=== PATIENT | female | born 1975 | race Caucasian/White ===

== ENCOUNTER → 2018-03-06 | Emergency (ER) | payer MEDICAID ==
[~2018-03-06] VITALS: Ht 167.6 cm; Wt 65.6 kg
[~2018-03-06] MED LIST: CEPH250T PO; TRAM50TA2 PO; ketorolac trometh inj. 60 MG/2 ML VIAL IM ONE
[2018-03-06 18:24] VITALS: BP 125/57
[2018-03-06 19:22] LABS: BASOPHILS % (AUTO) 0.2 % (0-1); EOSINOPHILS # (AUTO) 0.1 X10'3 (0-0.9); EOSINOPHILS % (AUTO) 1.8 % (0-6); HEMATOCRIT 33.8 % (35.0-45.0); HEMOGLOBIN 11.6 g/dl (12.0-16.0); LYMPHOCYTES # (AUTO) 2.2 X10'3 (1.1-4.8); LYMPHOCYTES % (AUTO) 27.1 % (21-51); MEAN CORPUSCULAR HEMOGLOBIN 32.5 PG (27.0-31.0); MEAN CORPUSCULAR HGB CONC 34.4 % (33.0-36.5); MEAN CORPUSCULAR VOLUME 94.4 FL (78-98); MEAN PLATELET VOLUME 8.3 FL (7.4-10.4); MONOCYTES # (AUTO) 0.4 X10'3 (0-0.9); MONOCYTES % (AUTO) 5.6 % (2-12); NEUTROPHILS # (AUTO) 5.2 X10'3 (1.8-7.7); NEUTROPHILS % (AUTO) 65.3 % (42-75); PLATELET COUNT 369 X10'3 (140-440); RED BLOOD COUNT 3.58 X10'6 (4.20-5.60)
[2018-03-06 19:32] LABS: ALBUMIN 3.5 G/DL (3.4-5.0); ANION GAP 8 (8-16); BLOOD UREA NITROGEN 12 MG/DL (7-18); BUN/CREATININE RATIO 18.5 (6.6-38.0); CALCIUM 8.8 MG/DL (8.5-10.1); CHLORIDE 102 MMOL/L (99-107); CREATININE 0.65 MG/DL (0.40-0.90); GLUCOSE 81 MG/DL (70-104); POTASSIUM 3.5 MMOL/L (3.5-5.1); SODIUM 139 MMOL/L (135-145); TOTAL CARBON DIOXIDE 28.6 MMOL/L (24-32); eGFR > 90 ML/MIN
== END | disposition home or self-care (01) ==
LOC: ER 18:20
DX: M25.572 Pain in left ankle and joints of left foot (principal); L03.116 Cellulitis of left lower limb; Z56.0 Unemployment, unspecified; Z90.49 Acquired absence of other specified parts of digestive tract; Z88.5 Allergy status to narcotic agent
CPT/HCPCS: 36415; 73610; 80048; 84550; 85025; 96372; 99285; J1885

== ENCOUNTER 2018-03-18 00:34 | Emergency (ER) | payer MEDICAID ==
[~2018-03-18] VITALS: Ht 167.6 cm; Wt 67.7 kg
[2018-03-18 00:42] VITALS: BP 119/71
[2018-03-18] MEDS ORDERED: SULF1TAB49 PO (00:45)
[2018-03-18] MEDS ORDERED: sulfamethoxazole/trimethoprim DS (800/160mg) tablet PO ONE (00:45)
== END 2018-03-18 00:59 | disposition home or self-care (01) ==
LOC: ER 00:34
DX: L03.116 Cellulitis of left lower limb (principal); F17.210 Nicotine dependence, cigarettes, uncomplicated; Z90.49 Acquired absence of other specified parts of digestive tract; Z90.710 Acquired absence of both cervix and uterus; Z88.5 Allergy status to narcotic agent; Z79.2 Long term (current) use of antibiotics; Z56.0 Unemployment, unspecified
CPT/HCPCS: 99283

== ENCOUNTER 2019-05-04 11:15 | Emergency (ER) | payer MEDICAID ==
[~2019-05-04] VITALS: Ht 167.6 cm; Wt 82.1 kg
[2019-05-04 11:21] VITALS: BP 116/51
[2019-05-04] MEDS ORDERED: CYCL-1 PO (13:36)
== END 2019-05-04 13:58 | disposition home or self-care (01) ==
LOC: ER 11:15
DX: S39.012A Strain of muscle, fascia and tendon of lower back, initial encounter (principal); F17.200 Nicotine dependence, unspecified, uncomplicated; F12.10 Cannabis abuse, uncomplicated; G89.21 Chronic pain due to trauma; Z88.5 Allergy status to narcotic agent; Z79.899 Other long term (current) drug therapy; Z90.49 Acquired absence of other specified parts of digestive tract; W31.89XA Contact with other specified machinery, initial encounter; Y93.89 Activity, other specified; Y92.89 Other specified places as the place of occurrence of the external cause; Y99.0 Civilian activity done for income or pay
CPT/HCPCS: 99283

== ENCOUNTER 2019-05-06 22:52 | Emergency (ER) | payer MEDICAID ==
[~2019-05-06] VITALS: Ht 167.6 cm; Wt 77.3 kg
[~2019-05-06 22:52] MED LIST changes: -CEPH250T PO; +CYCL-1 PO; -TRAM50TA2 PO; -ketorolac trometh inj. 60 MG/2 ML VIAL IM ONE
[2019-05-06] MEDS ORDERED: orphenadrine citrate 60mg/2ml inj. IM ONE (23:20)
[2019-05-06] MEDS ORDERED: HYDROcodone/acetaminophen 10/325mg tab PO ONE (23:20)
[2019-05-06] MEDS: morphine 4 MG/ML inj SYRINge IV PRN (23:31)
[2019-05-06 23:45] LABS: MEAN CORPUSCULAR HEMOGLOBIN 24.3 PG (27.0-31.0); RED CELL DISTRIBUTION WIDTH 17.5 % (11.5-14.5)
[2019-05-06 23:47] LABS: BASOPHILS # (AUTO) 0.1 X10'3 (0-0.2); BASOPHILS % (AUTO) 0.9 % (0-1); EOSINOPHILS # (AUTO) 0.1 X10'3 (0-0.9); EOSINOPHILS % (AUTO) 1.5 % (0-6); HEMATOCRIT 26.8 % (35.0-45.0); HEMOGLOBIN 8.6 g/dl (12.0-16.0); LYMPHOCYTES # (AUTO) 1.7 X10'3 (1.1-4.8); LYMPHOCYTES % (AUTO) 19.3 % (21-51); MEAN CORPUSCULAR HGB CONC 32.2 g/dL (33.0-36.5); MEAN CORPUSCULAR VOLUME 75.3 FL (78-98); MEAN PLATELET VOLUME 7.7 FL (7.4-10.4); MONOCYTES # (AUTO) 0.6 X10'3 (0-0.9); MONOCYTES % (AUTO) 7.1 % (2-12); NEUTROPHILS # (AUTO) 6.4 X10'3 (1.8-7.7); NEUTROPHILS % (AUTO) 71.2 % (42-75); PLATELET COUNT 622 X10'3 (140-440); RED BLOOD COUNT 3.56 X10'6 (4.20-5.60)
[2019-05-06 23:50] LABS: ALANINE AMINOTRANSFERASE 136 U/L (12-78); ALBUMIN 3.6 G/DL (3.4-5.0); ALBUMIN/GLOBULIN RATIO 0.8 (1.1-1.5); ALKALINE PHOSPHATASE 194 IU/L (46-116); ANION GAP 4 (8-16); ASPARTATE AMINO TRANSFERASE 105 U/L (10-37); BILIRUBIN,TOTAL 0.3 MG/DL (0.1-1.0); BLOOD UREA NITROGEN 13 MG/DL (7-18); BUN/CREATININE RATIO 13.7 (6.6-38.0); CALCIUM 8.7 MG/DL (8.5-10.1); CHLORIDE 100 MMOL/L (99-107); CREATININE 0.95 MG/DL (0.40-0.90); GLUCOSE 99 MG/DL (70-104); POTASSIUM 3.7 MMOL/L (3.5-5.1); SODIUM 135 MMOL/L (135-145); TOTAL CARBON DIOXIDE 30.6 MMOL/L (24-32); TOTAL PROTEIN 8.1 G/DL (6.4-8.2); eGFR 64 ML/MIN
--- NOTE | 2019-05-07 00:36 | NUR ---
pt with stable vs, reports when given the pain meds earlier her pain went down to a 3 out of 10, but now increased to 8 out of 10 to the right back and right leg.
[2019-05-07] MEDS: morphine 4 MG/ML inj SYRINge IV PRN (00:44)
[2019-05-07 00:47] LABS: ANISOCYTOSIS 1+; HYPOCHROMASIA 1+; MICROCYTOSIS 1+; PLATELET ESTIMATE INCREASED
[2019-05-07] MEDS ORDERED: HYDR-4353 PO (00:51)
[2019-05-07] MEDS ORDERED: IBUP-1986 PO (00:51)
[2019-05-07] MEDS ORDERED: ORPH100T2 PO (00:51)
[2019-05-07 01:12] VITALS: BP 99/66
== END 2019-05-07 01:14 | disposition home or self-care (01) ==
LOC: ER 22:53
DX: M54.5 Low back pain (principal); F17.200 Nicotine dependence, unspecified, uncomplicated; Z88.6 Allergy status to analgesic agent; Z79.899 Other long term (current) drug therapy; Z90.49 Acquired absence of other specified parts of digestive tract; X50.0XXA Overexertion from strenuous movement or load, initial encounter; Y93.89 Activity, other specified; Y92.89 Other specified places as the place of occurrence of the external cause; Y99.8 Other external cause status
CPT/HCPCS: 36415; 80053; 85025; 96372; 96374; 96376; 99283; J2270; J2360

== ENCOUNTER 2019-06-15 11:45 | Emergency (ER) | payer MEDICAID ==
[~2019-06-15] VITALS: Ht 167.6 cm; Wt 80.0 kg
[~2019-06-15 11:45] MED LIST changes: +IBUP-1986 PO; +ORPH100T2 PO
[2019-06-15 12:07] VITALS: BP 97/70
[2019-06-15] MEDS ORDERED: NAPR-1154 PO (12:15)
[2019-06-15] MEDS ORDERED: COLC0.6T69 PO (12:15)
[2019-06-15] MEDS ORDERED: HYDR-4353 PO (12:15)
[2019-06-15] MEDS ORDERED: colchicine 0.6mg tablet PO ONE (12:20)
== END 2019-06-15 12:46 | disposition home or self-care (01) ==
LOC: ER 11:46
DX: M10.9 Gout, unspecified (principal); F12.90 Cannabis use, unspecified, uncomplicated; Z90.49 Acquired absence of other specified parts of digestive tract; Z98.890 Other specified postprocedural states; Z87.440 Personal history of urinary (tract) infections; Z88.5 Allergy status to narcotic agent
CPT/HCPCS: 99283

== ENCOUNTER 2019-09-11 16:25 | Emergency (ER) | payer MEDICAID ==
[~2019-09-11 16:25] MED LIST changes: +COLC0.6T69 PO; +NAPR-1154 PO
[2019-09-11 17:19] LABS: CLARITY,URINE CLEAR (Clear); COLOR,URINE YELLOW (Yellow); GLUCOSE, URINE NEGATIVE (Neg); KETONES,URINE NEGATIVE (Neg); LEUKOCYTE ESTERASE ,URINE SMALL (Neg); NITRITES, URINE POSITIVE (Neg); OCCULT BLOOD,URINE MODERATE (Neg); PH,URINE 5.5 (4.8-8.0); PROTEIN,URINE NEGATIVE (Neg); UROBILINOGEN,URINE 0.2 E.U/dL (0.2-1.0)
[2019-09-11 17:24] LABS: UA COLLECTION TYPE CLN CATCH MIDSTREAM
[2019-09-11 17:26] LABS: BACTERIA,URINE 4+ /HPF (Neg); MUCUS STRANDS FEW /LPF (Neg); SQUAMOUS EPITHELIAL CELL,UR MODERATE /LPF (FEW); WBC,URINE 30-50 /HPF (0-4)
[2019-09-11 17:45] LABS: EOSINOPHILS # (AUTO) 0.1 X10'3 (0-0.9); HEMOGLOBIN 9.6 g/dl (12.0-16.0); LYMPHOCYTES # (AUTO) 1.6 X10'3 (1.1-4.8); MONOCYTES # (AUTO) 0.7 X10'3 (0-0.9)
[2019-09-11 17:47] LABS: BASOPHILS # (AUTO) 0.1 X10'3 (0-0.2); BASOPHILS % (AUTO) 1.5 % (0-1); EOSINOPHILS % (AUTO) 0.8 % (0-6); HEMATOCRIT 30.3 % (35.0-45.0); LYMPHOCYTES % (AUTO) 21.2 % (21-51); MEAN CORPUSCULAR HEMOGLOBIN 25.6 PG (27.0-31.0); MEAN CORPUSCULAR HGB CONC 31.7 g/dL (33.0-36.5); MEAN CORPUSCULAR VOLUME 80.6 FL (78-98); MEAN PLATELET VOLUME 8.3 FL (7.4-10.4); MONOCYTES % (AUTO) 9.2 % (2-12); NEUTROPHILS % (AUTO) 67.3 % (42-75); PLATELET COUNT 462 X10'3 (140-440); RED BLOOD COUNT 3.76 X10'6 (4.20-5.60); RED CELL DISTRIBUTION WIDTH 18.9 % (11.5-14.5); WHITE BLOOD COUNT 7.5 X10'3 (4.5-11.0)
[2019-09-11 18:01] LABS: ALANINE AMINOTRANSFERASE 42 U/L (12-78); ALBUMIN 3.4 G/DL (3.4-5.0); ALBUMIN/GLOBULIN RATIO 0.8 (1.1-1.5); ALKALINE PHOSPHATASE 90 IU/L (46-116); ANION GAP 8 (8-16); ASPARTATE AMINO TRANSFERASE 35 U/L (10-37); BILIRUBIN,TOTAL 0.3 MG/DL (0.1-1.0); BLOOD UREA NITROGEN 9 MG/DL (7-18); BUN/CREATININE RATIO 11.3 (6.6-38.0); CALCIUM 8.5 MG/DL (8.5-10.1); CHLORIDE 104 MMOL/L (99-107); GLUCOSE 85 MG/DL (70-104); POTASSIUM 3.7 MMOL/L (3.5-5.1); SODIUM 139 MMOL/L (135-145); TOTAL CARBON DIOXIDE 27.1 MMOL/L (24-32); TOTAL PROTEIN 7.8 G/DL (6.4-8.2); eGFR 78 ML/MIN
[2019-09-11] MEDS ORDERED: BACDS PO (18:04)
[2019-09-11 18:17] VITALS: BP 117/66
== END 2019-09-11 18:19 | disposition home or self-care (01) ==
LOC: ER 16:26
DX: L03.116 Cellulitis of left lower limb (principal); L03.115 Cellulitis of right lower limb; N39.0 Urinary tract infection, site not specified; F12.90 Cannabis use, unspecified, uncomplicated; F19.90 Other psychoactive substance use, unspecified, uncomplicated; Z90.49 Acquired absence of other specified parts of digestive tract; Z98.890 Other specified postprocedural states; Z79.2 Long term (current) use of antibiotics; Z79.899 Other long term (current) drug therapy
CPT/HCPCS: 80053; 81001; 85025; 87077; 87088; 87186; 99283

== ENCOUNTER 2020-10-30 06:02 | Emergency (ER) | payer MEDICAID ==
[~2020-10-30] VITALS: Ht 167.6 cm; Wt 80.9 kg
[~2020-10-30 06:02] MED LIST changes: -COLC0.6T69 PO; +COLC0.6T72 PO
[2020-10-30 10:25] VITALS: BP 132/76
== END 2020-10-30 11:10 | disposition home or self-care (01) ==
LOC: ER 06:03
DX: B34.9 Viral infection, unspecified (principal); Z20.822 Contact with and (suspected) exposure to COVID-19; F12.90 Cannabis use, unspecified, uncomplicated; Z90.49 Acquired absence of other specified parts of digestive tract; Z98.891 History of uterine scar from previous surgery; Z79.899 Other long term (current) drug therapy
CPT/HCPCS: 87635; 99283; C9803

== ENCOUNTER 2023-10-02 10:40 | Emergency (ER) | payer MEDICAID ==
[~2023-10-02] VITALS: Ht 167.6 cm; Wt 83.0 kg
[~2023-10-02 10:40] MED LIST changes: -ORPH100T2 PO; +ORPH100T4 PO
[2023-10-02 11:51] LABS: BASOPHILS # (AUTO) 0.1 X10'3 (0-0.2); BASOPHILS % (AUTO) 0.8 % (0-1); EOSINOPHILS # (AUTO) 0.1 X10'3 (0-0.9); EOSINOPHILS % (AUTO) 2.2 % (0-6); HEMATOCRIT 38.1 % (35.0-45.0); LYMPHOCYTES % (AUTO) 28.7 % (21-51); MEAN CORPUSCULAR HEMOGLOBIN 32.2 PG (27.0-31.0); MEAN CORPUSCULAR HGB CONC 34.1 g/dL (33.0-36.5); MEAN CORPUSCULAR VOLUME 94.2 FL (78-98); MEAN PLATELET VOLUME 9.1 FL (7.4-10.4); MONOCYTES # (AUTO) 0.7 X10'3 (0-0.9); MONOCYTES % (AUTO) 10.8 % (2-12); NEUTROPHILS % (AUTO) 57.5 % (42-75); PLATELET COUNT 286 X10'3 (140-440); RED BLOOD COUNT 4.05 X10'6 (4.20-5.60); RED CELL DISTRIBUTION WIDTH 13.4 % (11.5-14.5); WHITE BLOOD COUNT 6.9 X10'3 (4.5-11.0)
[2023-10-02 12:19] VITALS: TEMP 97.8
[2023-10-02 12:19] LABS: ALBUMIN 3.8 G/DL (3.4-5.0); ANION GAP 6 (8-16); BLOOD UREA NITROGEN 17 MG/DL (7-18); BUN/CREATININE RATIO 23.6 (10.0-20.0); CALCIUM 8.6 MG/DL (8.5-10.1); CHLORIDE 101 MMOL/L (99-107); CREATININE 0.72 MG/DL (0.40-0.90); GLUCOSE 98 MG/DL (70-104); PRO BRAIN NATRIURETIC PEPTIDE < 30 PG/ML (0-125); SODIUM 137 MMOL/L (135-145); TOTAL CARBON DIOXIDE 30.2 MMOL/L (24-32); eCRCL 88 ML/MIN; eGFR 86 ML/MIN
[2023-10-02 12:25] LABS: POTASSIUM 3.9 MMOL/L (3.5-5.1)
[2023-10-02 13:56] VITALS: BP 114/67; PULSE 69; RESP 18; O2SAT 99
== END 2023-10-02 13:59 | disposition home or self-care (01) ==
LOC: ER 10:40
DX: R60.0 Localized edema (principal); Z90.49 Acquired absence of other specified parts of digestive tract; F12.90 Cannabis use, unspecified, uncomplicated; F19.90 Other psychoactive substance use, unspecified, uncomplicated
CPT/HCPCS: 36415; 71045; 80048; 83880; 84484; 85025; 93970; 99284

== ENCOUNTER 2024-07-04 10:17 | Emergency (ER) | payer MEDICAID ==
[~2024-07-04] VITALS: Ht 167.6 cm; Wt 80.3 kg
[2024-07-04] MEDS: buprenorphine/naloxone 8MG-2MG SUBlingual film SL SCH (10:44)
[2024-07-04] MEDS ORDERED: NO HOME MEDS (10:50)
[2024-07-04] MEDS ORDERED: BUPR1FIL3 SL (13:34)
[2024-07-04 14:07] VITALS: BP 107/75; PULSE 79; RESP 13; TEMP 98.2; O2SAT 99
== END 2024-07-04 14:10 | disposition home or self-care (01) ==
LOC: ER 10:18
DX: F11.23 Opioid dependence with withdrawal (principal); F12.90 Cannabis use, unspecified, uncomplicated; F19.90 Other psychoactive substance use, unspecified, uncomplicated; Z90.49 Acquired absence of other specified parts of digestive tract; Z79.1 Long term (current) use of non-steroidal anti-inflammatories (NSAID); Z79.899 Other long term (current) drug therapy; Z98.890 Other specified postprocedural states
CPT/HCPCS: 99285

== ENCOUNTER 2025-01-30 19:37 | Emergency (ER) | payer MEDICAID ==
[~2025-01-30] VITALS: Ht 167.6 cm; Wt 68.5 kg
[~2025-01-30 19:37] MED LIST changes: +NO HOME MEDS
[2025-01-30 19:53] VITALS: BP 112/51; PULSE 56; O2SAT 95
--- NOTE | 2025-01-30 22:57 | Physician Documentation ---
History of Present Illness ~ Chief Complaint: Back Pain Stated Complaint: LOWER BACK PAIN Time Seen by MD: 22:49 Primary Medical Doctor: [facility] 50-year-old female with a reported emergency department for evaluation of lower back pain x2 days. Patient reports that she woke up two mornings ago with back pain that progressed throughout the day. Patient reports that today her back hurt for the entire day made it very difficult for her to work or sit without discomfort. Patient reported the pain started to lower right back radiates down her right buttock into her right thigh. Patient denies any bowel or bladder incontinence at this time. No numbness tingling or saddle anesthesia reported. Reports taking Tylenol ibuprofen with minimal improvement. Medication Reconciliation Allergies: Coded Allergies: No Known Allergies (Unverified , 09/11/19) Scheduled Cyclobenzaprine* (Cyclobenzaprine*), 1 TAB PO Q8H Ibuprofen (Ibuprofen), 1 TAB PO Q8H Naproxen (Naprosyn), 1 TAB PO Q12H Orphenadrine Citrate (Norflex), 1 TAB PO Q12H PRN Scheduled PRN Colchicine (Colchicine), 1 TAB PO Q2H PRN for UP TO 3 DOSES Cyclobenzaprine* (Cyclobenzaprine*), 1 TAB PO TID PRN for pain Hydrocodone Bit/Acetaminophen 5/325 MG (Mark 5/325 MG), 1 TAB PO Q6H PRN for pain Miscellaneous Medications Home Med List (No Home Medications), (Reported) Past Medical History Past Medical History: UTI Past Surgical History: appendectomy, cholecystectomy, Alcohol Use: Rarely Drug Use: marijuana, other Lives with: Mother, Father Lives In: Home Occupation: employed Review of Systems ROS As stated above in the HPI, otherwise all systems are reviewed and negative. Physical Exam Physical Exam Vital Signs: Temperature: 98.2, Heart Rate: 56, Respiratory Rate: 20, BP: 112/51, Pulse Oximetry: 95, Weight: 68.500 Oxygen Flow Rate: 0 Physical Exam VITALS: Reviewed and as above. GENERAL: Alert, no apparent distress. HEENT: Normocephalic, atraumatic, PERRL, EOMI, dry mucosa, no erythema RESPIRATORY: Lungs clear, normal breath sounds, no respiratory distress. CHEST: No accessory muscle use, no retractions CV: Regular rate, rhythm, no edema, no murmur, No: JVD GI: Soft, non-tender, bowels sounds present, no rebound, guarding, or rigidity BACK: No CVA tenderness, or swelling MUSCULOSKELETAL No deformities, no edema, pain in the lumbosacral area with examination. Positive straight leg raise on the right. SKIN: Warm and dry, no rash NEURO: Oriented x4, No motor or sensory deficit PSYCH: Normal mood and affect, no agitation Progress Results/Orders Results/Orders Completed Orders - MAUDE BONDS Methylprednisolone Sod Succ (Solumedrol (01/30/25 23:00) Cyclobenzaprine Tablet (Flexeril Tablet) (01/30/25 23:00) Hydrocodone/Apap 5/325mg Tab (Mark 5/32 (01/30/25 23:00) Medications Received in ER Medications (Trade) Dose Ordered Sig/Pratima Route PRN Reason Start Time Stop Time Status Last Admin Dose Admin (SoluMEDROL 125mg inj) 125 mg ONCE ONCE IM 01/30/25 23:00 01/30/25 23:04 DC 01/30/25 23:21 125 MG (Flexeril tablet) 10 mg ONCE ONCE PO 01/30/25 23:00 01/30/25 23:04 DC 01/30/25 23:21 10 MG (Mark 5/325mg tablet) 1 tab ONCE ONCE PO 01/30/25 23:00 01/30/25 23:04 DC 01/30/25 23:22 1 TAB Vital Signs 01/30/25 01/30/25 19:53 23:22 Temp 98.2 Pulse 56 Resp 20 18 B/P (MAP) 112/51 Pulse Ox 95 O2 Flow Rate 0 Medical Decision Making Findings This patient presents with back pain most consistent with. Differential diagnoses includes lumbago versus musculoskeletal spasm / strain versus sciatica. Positive straight leg raise on the right side. No back pain red flags on history or physical. Presentation not consistent with malignancy (lack of history of malignancy, lack of B symptoms), fracture (no trauma, no bony tenderness to palpation), cauda equina (no bowel or urinary incontinence/retention, no saddle anesthesia, no distal weakness), AAA, viscus perforation, osteomyelitis or epidural abscess (no IVDU, vertebral tenderness), renal colic, pyelonephritis (afebrile, no CVAT, no urinary symptoms. CT of the lumbosacral region performed. Patient given Solu-Medrol Flexeril and Toradol. Patient will be discharged with pain medication x3 days. Patient will follow up with her primary care provider. Patient will return to the emergency department with any worsening of her current symptoms or any additional concerning symptoms that we discussed here today i.e. increased back pain incontinence of bowel or bladder, numbness or tingling to the bilateral lower extremities, numbness of the peroneal area, or any other concerning symptoms. Differential Dx:Considerations: Include: AAA, Aortic dissection, , Appendicitis, Bowel obstruction, Cholelithiasis, Cholangitis, DJD, Ectopic , Fracture, Hepatitis, HNP, Musculoskeletal pain, Pancreatitis, Pyelonephritis, Strain, Urinary obstruction, Urolithiasis, Ovarian torsion, Other Departure Disposition: 01 HOME / SELF CARE / HOMELESS Impression: Primary Impression: Back problem Additional Impressions: Strain of lumbar region Sciatica Condition: Stable Discharge Instructions: Sciatica, Acute Back Pain, Adult, Lumbosacral Strain Additional Instructions: This patient presents with back pain most consistent with. Differential diagnoses includes lumbago versus musculoskeletal spasm / strain versus s ciatica. Positive straight leg raise on the right side. No back pain red flags on history or physical. Presentation not consistent with malignancy (lack of history of malignancy, lack of B symptoms), fracture (no trauma, no bony tenderness to palpation), cauda equina (no bowel or urinary incontinence/retention, no saddle anesthesia, no distal weakness), AAA, viscus perforation, osteomyelitis or epidural abscess (no IVDU, vertebral tenderness), renal colic, pyelonephritis (afebrile, no CVAT, no urinary symptoms. CT of the lumbosacral region performed. Patient given Solu-Medrol Flexeril and Toradol. Patient will be discharged with pain medication x3 days. Patient will follow up with her primary care provider. Patient will return to the emergency department with any worsening of her current symptoms or any additional concerning symptoms that we discussed here today i.e. increased back pain incontinence of bowel or bladder, numbness or tingling to the bilateral lower extremities, numbness of the peroneal area, or any other concerning symptoms. Please take medications as prescribed. Please follow up with your primary care provider. Please return to the emergency department with any worsening of your current symptoms or any additional concerning symptoms that we discussed here today. Referrals: NO PRIMARY CARE PROVIDER (PCP) Prescriptions Hydrocodone Bit/Acetaminophen 5/325 MG (Mark 5/325 MG) 5 Mg/325 Mg Tablet 1 TAB PO Q6H PRN for pain for 3 Days, #12 TAB Prov: MAUDE BONDS 01/30/25 Cyclobenzaprine* (Cyclobenzaprine*) 10 Mg Tablet 1 TAB PO Q8H for muscle spasms for 10 Days, #30 TAB 0 Refills Prov: MAUDE BONDS 01/30/25 Education Educated: Patient Educated regarding: diagnosis, treatment, need for follow up Signature Scribe Signature: A Attestation: Scribed for Maude Bonds by JAMES Anglin . 01/30/25 23:55 MAUDE BONDS Jan 30, 2025 22:57
[2025-01-30] MEDS ORDERED: HYDR-3965 PO (22:59)
[2025-01-30] MEDS ORDERED: CYCL-1 PO (22:59)
[2025-01-30 23:22] VITALS: RESP 18
[2025-01-30] MEDS: HYDROcodone/acetaminophen 5mg/325mg tablet PO ONE (23:22)
[2025-01-30 23:56] VITALS: TEMP 98.2
--- NOTE | 2025-01-31 00:20 | RADIOLOGY REPORT ---
EXAM: CT CT LUMBAR SPINE HISTORY: low back pain COMPARISON: None CTDIvol 14 mGy, DLP 536 mGy*cm. TECHNIQUE: Multiple axial CT images of the spine were obtained using bone algorithm. Axial and coronal reformatting was done. Bone and soft tissue windows were reviewed. FINDINGS: No vertebral fracture or compression deformity. No listhesis. Minimal to mild multilevel spondylosis. No acute finding of the imaged ribs, osseous pelvis, or abdominopelvic contents. Cholecystectomy. IMPRESSION: 1. No acute finding of the lumbar spine.
[2025-02-01] MEDS ORDERED: HYDR-3973 PO (12:27)
== END 2025-01-31 00:09 | disposition home or self-care (01) ==
LOC: ER 19:38
DX: S39.012A Strain of muscle, fascia and tendon of lower back, initial encounter (principal); F12.90 Cannabis use, unspecified, uncomplicated; Z90.49 Acquired absence of other specified parts of digestive tract; X58.XXXA Exposure to other specified factors, initial encounter; Y93.89 Activity, other specified; Y92.89 Other specified places as the place of occurrence of the external cause; Y99.8 Other external cause status
CPT/HCPCS: 72131; 96372; 99285; J2919

== ENCOUNTER 2025-02-01 12:11 | Emergency (ER) | payer MEDICAID ==
[~2025-02-01] VITALS: Ht 167.6 cm; Wt 68.9 kg
[~2025-02-01 12:11] MED LIST changes: +HYDR-3965 PO
[2025-02-01 12:14] VITALS: TEMP 97.8
[2025-02-01] MEDS ORDERED: HYDR-3973 PO (12:27)
--- NOTE | 2025-02-01 12:29 | Physician Documentation ---
HPI ~ General Chief Complaint: Medication Request Stated Complaint: MED REQUEST Time Seen by MD: 12:21 OK to notify your PCP?: Yes Primary Medical Doctor: [facility] Source: patient, RN/MD History of Present Illness HPI Comments Patient is seen today sitting she has persistent low back pain stating that she was seen recently and had a prescription of Irrigon sent to the pharmacy but states the pharmacy system went down and she was unable to grape picker that prescription. She was able to grape picker her muscle relaxer that was prescribed. She denies any saddle anesthesia or changes in bowel or bladder habits and no other concerning or changing symptoms. She has no other concern at this time. Medication Reconciliation Allergies: Coded Allergies: No Known Allergies (Unverified , 02/01/25) Scheduled Cyclobenzaprine* (Cyclobenzaprine*), 1 TAB PO Q8H Ibuprofen (Ibuprofen), 1 TAB PO Q8H Naproxen (Naprosyn), 1 TAB PO Q12H Orphenadrine Citrate (Norflex), 1 TAB PO Q12H PRN Scheduled PRN Colchicine (Colchicine), 1 TAB PO Q2H PRN for UP TO 3 DOSES Cyclobenzaprine* (Cyclobenzaprine*), 1 TAB PO TID PRN for pain Hydrocodone Bit/Acetaminophen 5/325 MG (Irrigon 5/325 MG), 1 TAB PO Q6H PRN for pain Miscellaneous Medications Home Med List (No Home Medications), (Reported) Past Medical History Past Medical History: UTI Past Surgical History: appendectomy, cholecystectomy, Alcohol Use: Rarely Drug Use: marijuana, other Lives with: Mother, Father Lives In: Home Occupation: employed Review of Systems Constitutional: Denies: chills, fever, weakness Eyes: Denies: pain, blurred vision ENT: Denies: ear pain, nose pain, throat pain, mouth pain Respiratory: Denies: cough, shortness of breath Cardiovascular: Denies: chest pain, palpitations Gastrointestinal: Denies: abdominal pain, nausea, vomiting Genitourinary: Denies: burning, dysuria Female Genitalia: Denies: vaginal discharge, pelvic pain Neurological: Denies: headache, dizziness Musculoskeletal: Denies: pain, swelling Integumentary: Denies: rash, lesions Allergic/Immunologic: Denies: hives, itching Hematologic/Lymphatic: Denies: no symptoms reported Psychiatric: Denies: depression, anxiety Physical Exam Physical Exam Vital Signs: Temperature: 97.8, Source: Oral, Heart Rate: 60, Respiratory Rate: 18, BP: 110/57, Pulse Oximetry: 97, Weight: 68.900 Oxygen Flow Rate: 0 Physical Exam General: Awake and Alert, no acute distress. HEENT: Conjunctiva pink, Sclera clear, Mucus Membranes moist. Neck: Supple without masses and tenderness. Resp: Unlabored. Lungs clear to auscultation bilaterally. Musculoskeletal: Patient on exam does have decreased range of motion of the lumbar spine in all planes of motion. Patient is neurovascularly intact distally. Motor function intact distally. Strength intact. Extremities: No cyanosis,clubbing or edema. Skin: Warm and Dry. Progress Results/Orders Results/Orders Vital Signs 02/01/25 12:14 Temp 97.8 Pulse 60 Resp 18 B/P (MAP) 110/57 Pulse Ox 97 O2 Flow Rate 0 Medical Decision Making Findings Patient is seen today sitting she has persistent low back pain stating that she was seen recently and had a prescription of Irrigon sent to the pharmacy but states the pharmacy system went down and she was unable to grape picker that prescription. She was able to grape picker her muscle relaxer that was prescribed. She denies any saddle anesthesia or changes in bowel or bladder habits and no other concerning or changing symptoms. She has no other concern at this time. Patient was given refill of Irrigon 10/325 mg, one tab twice a day for seven days. Patient will return to ED with any worsening, concerning or changing symptoms. Patient will follow up with primary care for referral to physical therapy for further eval and treatment. Departure Disposition: HOME / SELF CARE / HOMELESS Impression: Primary Impression: Back problem Additional Impression: Strain of lumbar region Qualified Codes: S39.012A - Strain of muscle, fascia and tendon of lower back, initial encounter Condition: Stable Discharge Instructions: Low Back Sprain or Strain Rehab Additional Instructions: Patient was given refill of Irrigon 10/325 mg, one tab twice a day for seven days. Patient will return to ED with any worsening, concerning or changing symptoms. Patient will follow up with primary care for referral to physical therapy for further eval and treatment. Referrals: NO PRIMARY CARE PROVIDER (PCP) Prescriptions Hydrocodone Bit/Acetaminophen (Hydrocodone-Apap 10-325 Tablet) 10mg/325mg Tablet 1 TAB PO Q12H PRN PRN for pain for 7 Days, #14 TAB Prov: MARIA LUZ MURPHY PAC 02/01/25 Signature Scribe Signature: No scribe Attestation: No scribe MARIA LUZ MURPHY PAC Feb 01, 2025 12:29
[2025-02-01 12:47] VITALS: BP 113/46; PULSE 62; RESP 14; O2SAT 100
== END 2025-02-01 12:48 | disposition home or self-care (01) ==
LOC: ER 12:11
DX: S39.012A Strain of muscle, fascia and tendon of lower back, initial encounter (principal); F12.90 Cannabis use, unspecified, uncomplicated; F19.90 Other psychoactive substance use, unspecified, uncomplicated; Z90.49 Acquired absence of other specified parts of digestive tract; Z87.440 Personal history of urinary (tract) infections; Z79.899 Other long term (current) drug therapy; X58.XXXA Exposure to other specified factors, initial encounter; Y93.89 Activity, other specified; Y92.89 Other specified places as the place of occurrence of the external cause; Y99.8 Other external cause status
CPT/HCPCS: 99281

== ENCOUNTER 2025-02-06 18:04 | Emergency (ER) | payer MEDICAID ==
[~2025-02-06] VITALS: Ht 167.6 cm; Wt 69.4 kg
[~2025-02-06 18:04] MED LIST changes: -HYDR-3965 PO; +HYDR-3973 PO
[2025-02-06 18:07] VITALS: BP 130/71; PULSE 77; RESP 18; TEMP 96.4; O2SAT 98
== END 2025-02-06 20:35 | disposition left against medical advice (07) ==
LOC: ER 18:04
DX: M54.9 Dorsalgia, unspecified (principal); Z53.21 Procedure and treatment not carried out due to patient leaving prior to being seen by health care provider

== ENCOUNTER 2025-02-22 10:52 | Inpatient (IN) | payer MEDICAID ==
[~2025-02-22] VITALS: Ht 167.6 cm; Wt 68.2 kg
[~2025-02-22 10:52] MED LIST changes: -COLC0.6T72 PO; +COLC0.6T78 PO; -HYDR-3973 PO
[2025-02-22 12:33] LABS: CREATININE 0.64 MG/DL (0.40-0.90); TOTAL CARBON DIOXIDE 25.0 MMOL/L (24-32); eCRCL 97 ML/MIN; eGFR > 90 ML/MIN
[2025-02-22 14:06] LABS: MEAN PLATELET VOLUME 8.6 FL (7.4-10.4); RED CELL DISTRIBUTION WIDTH 13.4 % (11.5-14.5)
[2025-02-22 14:08] LABS: LEUKOCYTE ESTERASE ,URINE NEGATIVE (Neg); NITRITES, URINE POSITIVE (Neg); OCCULT BLOOD,URINE SMALL (Neg)
[2025-02-22 14:10] LABS: URINE HCG NEGATIVE (NEG)
[2025-02-22 14:12] LABS: UA COLLECTION TYPE CLN CATCH MIDSTREAM
[2025-02-22 14:19] LABS: SQUAMOUS EPITHELIAL CELL,UR FEW /LPF (FEW)
[2025-02-22] MEDS: CefTRIAXone/D5W-Rocephin 1gm 50 ML IV STA (15:12)
[2025-02-22] MEDS: acetaminophen 1,000mg/100ml IV 100 ML IV STA (15:12)
[2025-02-22] MEDS: normal saline 1000ml 1,000 ML IV STA (15:12)
[2025-02-22] MEDS: ketorolac trometh 30MG/ML vial 30 MG/ML VIAL IV STA (15:12)
--- NOTE | 2025-02-22 15:17 | Physician Documentation ---
History of Present Illness ~ Chief Complaint: Flank Pain Stated Complaint: FLANK PAIN Time Seen by MD: 13:30 Primary Medical Doctor: [facility] Mode of Arrival: POV, Ambulatory HPI Patient is seen today with complaints of right flank pain. Patient states she was seen a couple of weeks ago with similar pain in her right side/right back and she thought it was back pain and there was no urinalysis done at that time. Patient denies any urinary symptoms and denies any dysuria or urgency or f requency. Patient does admit to body aches and chills. She does admit to severe right-sided flank pain states she can hardly walk now because of it. She states the pain is just progressively worsened over the last couple of weeks. She has no new or other concern or complaint at this time. Medication Reconciliation Allergies: Coded Allergies: No Known Allergies (Unverified , 02/22/25) Scheduled Cyclobenzaprine* (Cyclobenzaprine*), 1 TAB PO Q8H Ibuprofen (Ibuprofen), 1 TAB PO Q8H Naproxen (Naprosyn), 1 TAB PO Q12H Orphenadrine Citrate (Norflex), 1 TAB PO Q12H PRN Scheduled PRN Colchicine (Colchicine), 1 TAB PO Q2H PRN for UP TO 3 DOSES Cyclobenzaprine* (Cyclobenzaprine*), 1 TAB PO TID PRN for pain Miscellaneous Medications Home Med List (No Home Medications), (Reported) Past Medical History Past Medical History: UTI Past Surgical History: appendectomy, cholecystectomy, Alcohol Use: Rarely Drug Use: marijuana, other Lives with: Mother, Father Lives In: Home Occupation: employed Review of Systems Constitutional: Denies: chills, fever, weakness Eyes: Denies: pain, blurred vision ENT: Denies: ear pain, nose pain, throat pain, mouth pain Respiratory: Denies: cough, shortness of breath Cardiovascular: Denies: chest pain, palpitations Gastrointestinal: Denies: abdominal pain, nausea, vomiting Genitourinary: Denies: burning, dysuria Female Genitalia: Denies: vaginal discharge, pelvic pain Neurological: Denies: headache, dizziness Musculoskeletal: Denies: pain, swelling Integumentary: Denies: rash, lesions Allergic/Immunologic: Denies: hives, itching Hematologic/Lymphatic: Denies: no symptoms reported Psychiatric: Denies: depression, anxiety Physical Exam Vital Signs: Temperature: 98.4, Source: Temporal, Heart Rate: 89, Respiratory Rate: 16, BP: 108/78, Pulse Oximetry: 98, Weight: 68.180 Oxygen Flow Rate: 0 Physical Exam General: Awake and Alert, no acute distress. HEENT: Conjunctiva pink, Sclera clear, Mucus Membranes moist. Neck: Supple without masses and tenderness. Resp: Unlabored. Lungs clear to auscultation bilaterally. Heart: Regular Rate and rhythm, normal S1 and S2 without murmur, rub or gallop. Abdomen: Abdomen is soft, nondistended, nontender to palpation, no guarding, no rebound, patient does have severe CVA tenderness on the right side only. Extremities: No cyanosis,clubbing or edema. Skin: Warm and Dry. Progress Results/Orders Results/Orders Vital Signs 02/22/25 02/22/25 02/22/25 10:53 13:50 13:50 Temp 98.4 Pulse 92 89 Resp 16 16 18 B/P (MAP) 113/74 108/78 (88) Pulse Ox 97 98 O2 Flow Rate 0 0 Laboratory Tests Test 02/22/25 12:07 02/22/25 13:43 02/22/25 13:45 CBC Comment Sodium Level 139 Potassium Level 4.0 Chloride Level 105 Carbon Dioxide Level 25.0 Anion Gap 9 Blood Urea Nitrogen 10 Creatinine 0.64 Estimated GFR/1.73 m2 > 90 BUN/Creatinine Ratio 15.6 Glucose Level 89 Calcium Level 9.0 Total Bilirubin 1.1 H Aspartate Amino Transf (AST/SGOT) 22 Alanine Aminotransferase (ALT/SGPT) 16 Alkaline Phosphatase 78 Total Protein 7.9 Albumin 3.7 Globulin 4.2 Albumin/Globulin Ratio 0.9 L Lipase 11 L Chemistry Comments White Blood Count 7.0 Red Blood Count 4.19 L Hemoglobin 13.6 Hematocrit 39.1 Mean Corpuscular Volume 93.2 Mean Corpuscular Hemoglobin 32.3 H Mean Corpuscular Hemoglobin Concent 34.7 Red Cell Distribution Width 13.4 Platelet Count 276 Mean Platelet Volume 8.6 Neutrophils (%) (Auto) 68.5 Lymphocytes (%) (Auto) 22.9 Monocytes (%) (Auto) 7.2 Eosinophils (%) (Auto) 0.6 Basophils (%) (Auto) 0.8 Neutrophils # (Auto) 4.8 Lymphocytes # (Auto) 1.6 Monocytes # (Auto) 0.5 Eosinophils # (Auto) 0.0 Basophils # (Auto) 0.1 Urine Specimen Description Cln catch midstream Urine Color Yellow Urine Clarity Slightly cloudy Urine pH 5.5 Urine Specific [place] >=1.030 Urine Protein Negative Urine Glucose (UA) Negative Urine Ketones Negative Urine Occult Blood Small Urine Nitrite Positive H Urine Bilirubin Negative Urine Urobilinogen 0.2 Urine Leukocyte Esterase Negative Urine RBC 3-10 Urine WBC 5-10 H Urine Squamous Epithelial Cells Few Urine Bacteria 4+ Urine Culture Indicated Indicated Volume Urine Centrifuged 10 ml Urine HCG, Qualitative Negative Urine Comment Medical Decision Making Findings Patient is seen today with complaints of right flank pain. Patient states she was seen a couple of weeks ago with similar pain in her right side/right back and she thought it was back pain and there was no urinalysis done at that time. Patient denies any urinary symptoms and denies any dysuria or urgency or frequency. Patient does admit to body aches and chills. She does admit to severe right-sided flank pain states she can hardly walk now because of it. She states the pain is just progressively worsened over the last couple of weeks. She has no new or other concern or complaint at this time. Patient was started on IV medications including Toradol, acetaminophen, ceftriaxone, normal saline. Patient will be admitted to the hospital and hospitalist was consulted. CT of abdomen and pelvis with contrast was ordered. Departure Disposition: HOME / SELF CARE / HOMELESS Impression: Primary Impression: Acute pyelonephritis Condition: Fair Discharge Instructions: Pyelonephritis, Adult Additional Instructions: Patient was started on IV medications including Toradol, acetaminophen, ceftriaxone, normal saline. Patient will be admitted to the hospital and hospitalist was consulted. CT of abdomen and pelvis with contrast was ordered. Referrals: NO PRIMARY CARE PROVIDER (PCP) Signature Scribe Signature: No scribe Attestation: No scribe MARIA LUZ MURPHY PAC Feb 22, 2025 15:16
[2025-02-22] MEDS ORDERED: iohexol 300mg/ml 100ml inj. ONE (15:21)
--- NOTE | 2025-02-22 16:02 | HISTORY AND PHYSICAL ---
History & Physical Providers to CC ~ History of Present Illness Reason for Admit\Complaint: Right flank pain History of Present Illness 50 years old female presented to the ER for evaluation of right flank pain. Patient states she was seen at this ER three weeks ago, diagnosed with a sciatica, discharged home with Vicodin. Patient has been seeing a chiropractor since however for the past four days her pain now wraps around her right flank towards her right pubic region. Patient reports she had a fever today of 101. Denies having any nausea vomiting dysuria frequency urgency hematuria melena or bright red blood per rectum. Denies having any constipation diarrhea. Denies having any focal neurological symptoms. Patient is being admitted for treatment of probable pyelonephritis. Allergies: Coded Allergies: No Known Allergies (Unverified , 02/22/25) Home Medications Home Medications Active Reported No Home Medications (Home Med List) Each Past Medical History Past Medical History None Past Surgical History Surgical History Comment x1, appendectomy, cholecystectomy Past Social History Social History Comment Smokes 4-5 cigarettes per day, does not drink or do any drugs Health Maintenance Health Maintenance Current on her immunizations ROS ROS All other systems are reviewed and are negative except as mentioned in HPI Exam Vitals: Vital Signs Date Time Temp Pulse Resp B/P (MAP) Pulse Ox O2 Delivery O2 Flow Rate FiO2 02/22/25 13:50 18 02/22/25 13:50 89 98 0 02/22/25 10:53 98.4 General: Awake alert cooperative in no acute distress. Patient is emotional and crying HEENT: Normocephalic atraumatic pupils round reactive to light and accommodation, extraocular movements intact, sclera anicteric, conjunctiva pinkish, moist oral mucosa, no rash or ulcers. Neck: Supple, no JVD, trachea midline, no lymphadenopathy. Chest: Clear to auscultation, no wheezes crackles or rhonchi. Cardiovascular: Regular rate rhythm, no murmur gallop or rub. Abdomen: Soft, tender in the right flank, no organomegaly Extremities: No cyanosis clubbing or edema. Central Nervous System: Nonfocal. Moves all four extremities Musculoskeletal: No joint swelling or deformities noted. Skin: No rash or ulcers noted. Diagnostic Data Last Recorded Lab Results: 02/22/25 1343 02/22/25 1207 Additional Plan 50 years old female presented to the ER for evaluation of right flank pain. #pyelonephritis: Start on IV Rocephin. Patient underwent a CT scan of the abdomen and pelvis. Radiology read is pending. #code status: Patient wishes to be a Full code Date of Service: Feb 22, 2025 Billing Provider: CARLENE THOMSON MD Common Visit Codes: [id number] INP/OBS CARE (MOD) CARLENE THOMSON MD Feb 22, 2025 16:02
[2025-02-22] MEDS ORDERED: potassium Cl 40MEQ/1/2NS 520ml 520 ML IV PRN (16:05)
[2025-02-22] MEDS ORDERED: ondansetron/PF 4mg/2ml inj IV PRN (16:05)
[2025-02-22] MEDS ORDERED: potassium Cl 20 mEq SR tablet PO PRN (16:05)
[2025-02-22] MEDS ORDERED: morphine 4 MG/ML inj SYRINge IV PRN (16:05)
[2025-02-22] MEDS ORDERED: magnesium Cl slow-release 64mg tablet PO PRN (16:05)
[2025-02-22] MEDS ORDERED: magnesium sulf-water 2g/50mL 50 ML IV PRN (16:05)
[2025-02-22] MEDS ORDERED: magnesium sulf-water 4G/100mL 100 ML IV PRN (16:05)
[2025-02-22] MEDS: CefTRIAXone/D5W-Rocephin 1gm 50 ML IV SCH (16:05)
[2025-02-22] MEDS: normal saline 1000ml 1,000 ML IV SCH (16:27)
--- NOTE | 2025-02-22 17:53 | RADIOLOGY REPORT ---
Indication: right flank pain Technique: CT axial images of the abdomen and pelvis are obtained with intravenous contrast. Coronal and sagittal reformats were obtained. Radiation Dose Information: CTDI volume is 17.0 mGy. Dose-length product is 819 mGy*cm Comparison: None FINDINGS: Bases demonstrate no pleural effusion. Adrenal glands, spleen and pancreas unremarkable. Cholecystectomy. No enhancing hepatic lesion. No hydronephrosis. Stomach is partially distended. Small bowel loops are normal in caliber. Moderate volume stool in the colon. No secondary signs for appendicitis. Abdominal aorta normal in caliber. Bladder distended. No free pelvic fluid. No inguinal lymphadenopathy. No aggressive osseous process. [id number] thoracolumbar degenerative disc disease. IMPRESSION: No significant hydronephrosis. Cholecystectomy. Moderate volume stool in the colon. Other findings as described.
[2025-02-22] MEDS: docusate sod 100mg capsule PO SCH (20:00)
[2025-02-22] MEDS: K and/or MAG REPLACEMENT MC SCH (20:00)
[2025-02-22 21:48] VITALS: BP 117/42; PULSE 69; RESP 18; TEMP 97.7; O2SAT 99
[2025-02-22] MEDS: morphine 4 MG/ML inj SYRINge IV PRN (21:54)
[2025-02-23 05:43] LABS: MEAN PLATELET VOLUME 9.1 FL (7.4-10.4); RED CELL DISTRIBUTION WIDTH 13.7 % (11.5-14.5)
[2025-02-23 05:55] LABS: CREATININE 0.57 MG/DL (0.40-0.90); TOTAL CARBON DIOXIDE 28.0 MMOL/L (24-32); eCRCL 109 ML/MIN; eGFR > 90 ML/MIN
[2025-02-23 06:00] VITALS: BP 112/66; PULSE 63; RESP 16; TEMP 97.5; O2SAT 99
[2025-02-23] MEDS: potassium Cl 20 mEq SR tablet PO PRN (07:30)
[2025-02-23 08:00] VITALS: RESP 16; O2SAT 97
[2025-02-23 10:00] VITALS: BP 120/61; PULSE 62; RESP 14; TEMP 97.4; O2SAT 100
[2025-02-23] MEDS: HYDROcodone/acetaminophen 5mg/325mg tablet PO PRN (10:30)
--- NOTE | 2025-02-23 12:03 | PROGRESS NOTE ---
Daily Progress Note Providers to CC ~ Antibiotic Timeout Antibiotic Ordered?: Yes Subjective Patient reports improvement in her symptoms. Wants to go home. Objective Vital Signs Date Time Temp Pulse Resp B/P (MAP) Pulse Ox O2 Delivery O2 Flow Rate FiO2 02/23/25 10:30 16 02/23/25 08:00 97 Room Air 02/23/25 06:00 97.5 63 112/66 (81) 02/22/25 17:10 0 Result Diagram: 02/23/25 0444 02/23/25 0444 Gen. awake alert oriented asymptomatic HEENT: Normocephalic, atraumatic, extraocular movements are intact, sclera anicteric, conjunctiva pinkish, moist oral mucosa, no rash or ulcers. NECK: Supple, no JVD, trachea midline. CHEST: Clear to auscultation, no wheezes crackles or rhonchi. HEART: Regular rate rhythm, no murmur gallop or rub. ABDOMEN: Soft, nontender, no organomegaly. No tenderness in the right flank. EXTREMITIES: No cyanosis clubbing or edema. NEURO EXAM: Grossly nonfocal. MUSCULOSKELETAL : No joint swelling or deformities. SKIN: No rash or ulcers noted. Other Results Medications reviewed Problem\Assessment\Plan 50 years old female who presented to the ER for evaluation of pain in the right flank and fever # pyelonephritis: Continue IV Rocephin. Patient reports improvement in his symptoms # Gram-negative UTI: Continue Rocephin. Await final cultures #code status: Full code Date of Service: Feb 23, 2025 Billing Provider: CARLENE THOMSON MD Common Visit Codes: [id number] INP/OBS CARE(MOD) CARLENE THOMSON MD Feb 23, 2025 12:03
[2025-02-23] MEDS: ketorolac trometh 15mg/ml vial 15 MG/ML ML IV PRN (14:19)
[2025-02-23 18:00] VITALS: BP 127/69; PULSE 61; RESP 17; TEMP 97.4; O2SAT 94
[2025-02-23 22:00] VITALS: BP 114/64; PULSE 62; RESP 14; TEMP 98.6; O2SAT 100
[2025-02-24 06:11] LABS: MEAN PLATELET VOLUME 9.3 FL (7.4-10.4); RED CELL DISTRIBUTION WIDTH 13.6 % (11.5-14.5)
[2025-02-24 06:26] LABS: CREATININE 0.58 MG/DL (0.40-0.90); TOTAL CARBON DIOXIDE 26.5 MMOL/L (24-32); eCRCL 107 ML/MIN; eGFR > 90 ML/MIN
[2025-02-24 08:20] VITALS: RESP 16; O2SAT 96
[2025-02-24 08:51] VITALS: RESP 17
[2025-02-24] MEDS ORDERED: ACET-1008 PO (10:48)
[2025-02-24] MEDS ORDERED: CIPR-458 PO (10:49)
--- NOTE | 2025-02-24 18:46 | DISCHARGE SUMMARY ---
Discharge Summary Providers to CC ~ Discharge Summary Admission Diagnosis: pyelonephritis Hospital Course DATE OF ADMISSION: February 22, 2025 DATE OF DISCHARGE:February 24, 2025 CBC testing done on February 24, 2025 showed WBC 4.7 hemoglobin 12.0 hematocrit 34.2 platelet count 237. Serum chemistry done on February 24, 2025 showed sodium 143 potassium 3.7 creatinine 0.58 GFR 90 total bilirubin 1.1 normal AST ALT and alkaline phosphatase lipase 11. Urine culture showed E coli CT ABDOMEN PELVIS-IMPRESSION: No significant hydronephrosis. Cholecystectomy. Moderate volume stool in the colon. Other findings as described. Discharge Diagnosis\Comment: #possible pyelonephritis # Gram-negative UTI: # chronic back pain Operations\Procedures: None Consultants: None Complications: None Condition on DC: Stable New Medications: Ciprofloxacin HCl (Ciprofloxacin HCl) 500 Mg Tab 1 TAB PO BID for 7 Days, #14 TAB Changed Medications: Acetaminophen (Tylenol) 325 Mg Tablet 1 TAB PO Q6H for 5 Days, #20 TAB (Changed from: QDAY PRN; Removed Reason; ; 30) Discontinued Medications: Home Med List (No Home Medications) Each Discharge Summary: 50 years old female who presented to the ER for evaluation of pain in the right flank and fever Patient states she was seen at this ER three weeks ago, diagnosed with a sciatica, discharged home with Vicodin. Patient has been seeing a chiropractor since however for the past four days her pain now wraps around her right flank towards her right pubic region. Patient reports she had a fever today of 101. Denies having any nausea vomiting dysuria frequency urgency hematuria melena or bright red blood per rectum. Denies having any constipation diarrhea. Denies having any focal neurological symptoms. During hospitalization patient was treated for # possible pyelonephritis: Continue IV Rocephin. Patient reports improvement in his symptoms # Gram-negative UTI: Continue Rocephin. Urine culture reviewed #code status: Full code Patient is feeling better she has been afebrile and getting discharged home in stable condition. Patient is seen and examined on the day of discharge. All labs, diagnostic workup and discharge plan discussed with patient and family members in detail before her discharge. All questions and queries answered to the best of my professional medical knowledge. I heard patient's concerns and address appropriately. Patient was cleared by Physical therapy team for home discharge . manager ship involved in patient's discharge plan. Discharge instructions provided to the patientFollow-up with PCP/ urgent care in 1-2 weeks, increase oral fluid more than 1500 mL per day. Repeat CBC sed rate procalcitonin and BMP in 5-7 days in outpatient setting with PCP. General-patient not in any acute distress, alert awake oriented, chronically ill-appearing, looks comfortable HEENT-atraumatic normocephalic, neck supple without elevated JVD, no thyromegaly or carotid bruit. No lymphadenopathy bilaterally. Eyes-no icterus or pallor seen in eyes Chest-clear to auscultation bilaterally, breathing nonlabored no tachypnea, no wheezing, no crepitation, no crackles. Heart-S1-S2 normal, regular heart rate no murmur Abdomen bowel sounds positive on auscultation, soft nondistended nontender no guarding, no rigidity, no CVA tenderness bilaterally Skin no active skin rash Neurology-grossly intact, nonfocal alert awake oriented Extremity- no pedal edema able to move all 4 extremities Psychiatry - patient is not confused or agitated cooperated during physical examination *Problems/Diagnosis: (1) Sciatica Status: Acute (2) Acute pyelonephritis Status: Acute Total Time Spent on D/C: > 30 Minutes Date of Service: Feb 24, 2025 Billing Provider: KVNG WHEELER MD Common Visit Codes: 78665-UMM/OBS DISCH DAY >30min KVNG WHEELER MD Feb 24, 2025 18:45
== END 2025-02-24 11:40 | disposition home or self-care (01) | DRG 463 ==
LOC: ER 10:53 → ED HOLD 16:03 → SUR 3N 21:44
PROVIDERS: ADMIT Internal Medicine; ATTEND Internal Medicine
PROC: BW211ZZ Computerized Tomography (CT Scan) of Abdomen and Pelvis using Low Osmolar Contrast (ICD-10-PCS; principal; 2025-02-22)
DX: N10 Acute pyelonephritis (principal); B96.89 Other specified bacterial agents as the cause of diseases classified elsewhere; G89.29 Other chronic pain; F17.210 Nicotine dependence, cigarettes, uncomplicated; M54.30 Sciatica, unspecified side; Z90.49 Acquired absence of other specified parts of digestive tract
CPT/HCPCS: 36415; 74177; 80048; 80053; 81001; 81025; 83690; 83735; 85025; 87077; 87081; 87088; 87186; 96365; 96375; 99285; A6258; G0378; J0131; J0696; J1885; J2270; J7030; Q9967